=== PATIENT | female | born 1965 | race Caucasian/White ===

== ENCOUNTER → 2019-01-27 | Outpatient (CLI) | payer SELFPAY ==
--- NOTE | 2019-01-27 11:11 | Diagnostic Imaging Report ---
PROCEDURE: CT head without contrast. TECHNIQUE: Multiple contiguous axial images were obtained through the brain without the use of intravenous contrast. Auto Exposure Controls were utilized during the CT exam to meet ALARA standards for radiation dose reduction. INDICATION: Loss of balance. COMPARISON: There are no prior studies available for comparison. FINDINGS: There is no mass, shift of midline or hemorrhage to suggest an acute intracranial abnormality. The ventricles are not abnormally dilated. The bone window shows no evidence for a fracture or for a destructive lesion. The orbits and sinuses were not visualized in their entirety. Where visualized there is no acute abnormality. IMPRESSION: 1. There is no evidence for an acute intracranial abnormality and there is no sign of a mass lesion. 2. If clinical concern regarding an underlying abnormality persists, then MRI would be recommended for further study. Dictated by: Dictated on workstation # [id number]
== END ==
LOC: RAD FS 10:08
PROVIDERS: ATTEND Family Medicine
DX: R26.89 Other abnormalities of gait and mobility (principal)
CPT/HCPCS: 70450

== ENCOUNTER → 2019-09-22 | Outpatient (CLI) | payer SELFPAY ==
--- NOTE | 2019-09-22 15:51 | Diagnostic Imaging Report ---
INDICATION: Right thumb injury. FINDINGS: Three views of the right thumb show no acute fracture or dislocation. There is some joint space narrowing of the interphalangeal joint of the thumb. 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 Dictated by: Dictated on workstation # [id number]
== END ==
LOC: RAD FS 15:06
PROVIDERS: ATTEND Nurse Practitioner
DX: M19.041 Primary osteoarthritis, right hand (principal)
CPT/HCPCS: 73140

== ENCOUNTER → 2019-11-18 | Outpatient (CLI) | payer SELFPAY | LOC: ORTHO 08:32 | PROVIDERS: ATTEND Orthopaedic Surgery | DX: S83.411A Sprain of medial collateral ligament of right knee, initial encounter (principal); M76.51 Patellar tendinitis, right knee; M70.51 Other bursitis of knee, right knee; M17.11 Unilateral primary osteoarthritis, right knee; M76.899 Other specified enthesopathies of unspecified lower limb, excluding foot ==

== ENCOUNTER 2020-04-12 15:54 | Emergency (ER) | payer SELFPAY ==
[~2020-04-12] VITALS: Ht 165 cm; Wt 104.3 kg
[2020-04-12] MEDS ORDERED: ONDANSETRON 4 MG/2 ML (SDV) Z0FRAN ONE (16:06)
[2020-04-12 16:24] LABS: BASOPHILS # (AUTO) 0.1 10^3/uL (0.0-0.1); BASOPHILS % (AUTO) 1 % (0-10); EOSINOPHILS # (AUTO) 2.4 10^3/uL (0.0-0.3); EOSINOPHILS % (AUTO) 21 % (0-10); HEMATOCRIT 42 % (35-52); LYMPHOCYTES # (AUTO) 2.4 X 10^3 (1.0-4.0); LYMPHOCYTES % (AUTO) 21 % (12-44); MEAN CORPUSCULAR HEMOGLOBIN 30 PG (25-34); MEAN CORPUSCULAR HGB CONC 33 G/DL (32-36); MEAN CORPUSCULAR VOLUME 90 FL (80-99); MEAN PLATELET VOLUME 10.1 FL (7.4-10.4); MONOCYTES # (AUTO) 0.7 X 10^3 (0.0-1.0); MONOCYTES % (AUTO) 6 % (0-12); NEUTROPHILS # (AUTO) 5.9 X 10^3 (1.8-7.8); NEUTROPHILS % (AUTO) 51 % (42-75); PLATELET COUNT 305 10^3/uL (130-400); WHITE BLOOD COUNT 11.4 10^3/uL (4.3-11.0)
[2020-04-12] MEDS ORDERED: RT-ALBUTEROL/IPRATROPIUM 3 ML (DUONEB) VIAL INH ONE (16:30)
[2020-04-12] MEDS ORDERED: NS IV 500 ML 500 ML IV SCH (16:30)
--- NOTE | 2020-04-12 16:32 | ED Cough/URI ---
General Chief Complaint: Respiratory Problems Stated Complaint: HEADACHE,SOA History of Present Illness Date Seen by Provider: Apr 12, 2020 Time Seen by Provider: 16:20 Initial Comments 54-year-old female presents with complaint of headache and shortness of air. History of present illness, patient states she quit smoking 2 months ago and occasionally has some wheezing and shortness of air, but today got significantly worse. Denies fever or chills, but is having some nausea and vomiting which began today as well. Denies known exposure to COVID-19. Saw her doctor yesterday for some "tremors" that she is having and she was started on propranolol? Allergies and Home Medications Allergies Coded Allergies: codeine (Verified Allergy, Unknown, 04/12/20) pentazocine (Verified Allergy, Unknown, 04/12/20) Home Medications Albuterol Sulfate 1 Puff Puff, 2 PUFF IH Q4H 1 PUFF = 90 MCG Prescribed by: OZZIE SANTIAGO on 04/12/201705 Aspirin 325 Mg Tablet, 325 MG PO DAILY Prescribed by: OZZIE SANTIAGO on 04/12/201704 Azithromycin 250 Mg Tablet, 250 MG PO BID Prescribed by: OZZIE SANTIAGO on 04/12/201704 Dexamethasone 6 Mg Tablet, 6 MG PO DAILY Prescribed by: OZZIE SANTIAGO on 04/12/201704 Ivermectin 3 Mg Tablet, 18 MG PO ONCE take 6 tablets po today, repeat 6 tablets po in 3 days; then take 6 tablets po once weekly for 4 weeks. Prescribed by: OZZIE SANTIAGO on 04/12/201704 Ondansetron 4 Mg Tab.rapdis, 4 MG PO TID Prescribed by: OZZIE SANTIAGO on 04/12/201704 Patient Home Medication List Home Medication List Reviewed: Yes Review of Systems Review of Systems Constitutional: No chills, No diaphoresis, No dizziness, No fever; malaise; No weakness EENTM: no symptoms reported Respiratory: cough, short of breath, wheezing Cardiovascular: No chest pain, No edema, No palpitations, No syncope Gastrointestinal: No abdominal pain; nausea, vomiting Musculoskeletal: No back pain, No joint pain Skin: No change in color, No rash Psychiatric/Neurological: Headache; Denies Numbness, Denies Paresthesia, Denies Seizure Past Lemsvhz-Ovknaf-Ydwbuq Hx Past Med/Social Hx: Reviewed Nursing Past Med/Soc Hx Patient Social History Smoking Status: Former Smoker Recent Foreign Travel: No Contact w/Someone Who Travel: No Physical Exam Vital Signs - First Documented 04/12/20 16:12 Temp 35.7 Pulse 60 Resp 19 B/P (MAP) 163/81 (108) Pulse Ox 93 O2 Delivery Room Air Capillary Refill : Height: '" Weight: lbs. oz. kg; BMI Method: General Appearance: WD/WN, no apparent distress HEENT: PERRL/EOMI, normal ENT inspection Neck: non-tender, full range of motion, supple Respiratory: chest non-tender, no respiratory distress, no accessory muscle use, wheezing (expiratory) Cardiovascular: regular rate, rhythm, no edema, no gallop, no JVD Gastrointestinal: normal bowel sounds, non tender, soft Extremities: normal range of motion, non-tender, no pedal edema Neurologic/Psychiatric: no motor/sensory deficits, alert, normal mood/affect Skin: normal color, warm/dry Focused Exam Lactate Level 04/12/20 16:15: Lactic Acid Level 1.01 Lactic Acid Level Laboratory Tests Test 04/12/20 16:15 Lactic Acid Level 1.01 MMOL/L (0.50-2.00) Progress/Results/Core Measures Suspected Sepsis SIRS Temperature: Pulse: Respiratory Rate: Laboratory Tests 04/12/20 16:09: White Blood Count 11.4H Blood Pressure / Mean: 04/12/20 16:15: Lactic Acid Level 1.01 Laboratory Tests 04/12/20 16:09: Creatinine 1.00, Platelet Count 305, Total Bilirubin 0.2 Results/Orders Lab Results Laboratory Tests Test 04/12/20 16:09 04/12/20 16:15 Range/Units White Blood Count 11.4 H 4.3-11.0 10^3/uL Red Blood Count 4.71 4.35-5.85 10^6/uL Hemoglobin 14.0 11.5-16.0 G/DL Hematocrit 42 35-52 % Mean Corpuscular Volume 90 80-99 FL Mean Corpuscular Hemoglobin 30 25-34 PG Mean Corpuscular Hemoglobin Concent 33 32-36 G/DL Red Cell Distribution Width 13.7 10.0-14.5 % Platelet Count 305 130-400 10^3/uL Mean Platelet Volume 10.1 7.4-10.4 FL Immature Granulocyte % (Auto) 0 % Neutrophils (%) (Auto) 51 42-75 % Lymphocytes (%) (Auto) 21 12-44 % Monocytes (%) (Auto) 6 0-12 % Eosinophils (%) (Auto) 21 H 0-10 % Basophils (%) (Auto) 1 0-10 % Neutrophils # (Auto) 5.9 1.8-7.8 X 10^3 Lymphocytes # (Auto) 2.4 1.0-4.0 X 10^3 Monocytes # (Auto) 0.7 0.0-1.0 X 10^3 Eosinophils # (Auto) 2.4 H 0.0-0.3 10^3/uL Basophils # (Auto) 0.1 0.0-0.1 10^3/uL Immature Granulocyte # (Auto) 0.0 0.0-0.1 10^3/uL Neutrophils % (Manual) 59 % Lymphocytes % (Manual) 15 % Monocytes % (Manual) 3 % Eosinophils % (Manual) 20 % Basophils % (Manual) 1 % Band Neutrophils 2 % Blood Morphology Comment NORMAL Sodium Level 141 135-145 MMOL/L Potassium Level 5.0 3.6-5.0 MMOL/L Chloride Level 107 98-107 MMOL/L Carbon Dioxide Level 24 21-32 MMOL/L Anion Gap 10 5-14 MMOL/L Blood Urea Nitrogen 18 7-18 MG/DL Creatinine 1.00 0.60-1.30 MG/DL Estimat Glomerular Filtration Rate 58 BUN/Creatinine Ratio 18 Glucose Level 95 70-105 MG/DL Calcium Level 9.0 8.5-10.1 MG/DL Corrected Calcium 9.1 8.5-10.1 MG/DL Total Bilirubin 0.2 0.1-1.0 MG/DL Aspartate Amino Transf (AST/SGOT) 16 5-34 U/L Alanine Aminotransferase (ALT/SGPT) 15 0-55 U/L Alkaline Phosphatase 85 40-136 U/L C-Reactive Protein 1.05 H <0.50 MG/DL Total Protein 7.0 6.4-8.2 GM/DL Albumin 3.9 3.2-4.5 GM/DL Lactic Acid Level 1.01 0.50-2.00 MMOL/L My Orders Orders - ROVENSTINE,OZZIE L DO Ondansetron Injection (Zofran Injectio (04/12/20 16:06) Ed Iv/Invasive Line Start (04/12/20 16:10) Chest 1 View Ap/Pa Only (04/12/20 16:10) Cbc With Automated Diff (04/12/20 16:10) Comprehensive Metabolic Panel (04/12/20 16:10) Crp Fs (04/12/20 16:10) Procalcitonin (Pct) (04/12/20 16:10) Lactic Acid Analyzer (04/12/20 16:10) Coronavirus Sars-Cov-2 So 2019 (04/12/20 16:10) Manual Differential (04/12/20 16:09) Dexamethasone Injection (Decadron Inje (04/12/20 16:30) Albuterol/Ipra Inhalation Soln (Duoneb I (04/12/20 16:30) Ns Iv 500 Ml (Sodium Chloride 0.9%) (04/12/20 16:30) Svn Small Volume Nebulizer (04/12/20 16:28) Medications Given in ED Current Medications Medications Dose Ordered Sig/Leland Route Start Time Stop Time Status Last Admin Dose Admin Albuterol/ Ipratropium 3 ml ONCE ONCE INH 04/12/20 16:30 12 16:31 DC 04/12/20 16:40 3 ML Dexamethasone Sodium Phosphate 8 mg ONCE ONCE IV 04/12/20 16:30 04/12/20 16:31 DC 04/12/20 16:40 8 MG Ondansetron HCl 4 mg STK-MED ONCE .ROUTE 04/12/20 16:06 04/12/20 16:10 DC 04/12/20 16:41 4 MG Vital Signs/I&O 04/12/20 16:12 Temp 35.7 Pulse 60 Resp 19 B/P (MAP) 163/81 (108) Pulse Ox 93 O2 Delivery Room Air Capillary Refill : Progress Note : Progress Note Patient with clinical signs suspicious for COVID infection, although her chest x-ray is clear and lab work is otherwise normal. Patient did have oxygen saturations hovering 90-93 percent, she did feel better after breathing treatment and steroids and was no longer dyspneic or nauseated. Patient tested for COVID-19 with results pending and advised self quarantine. Initiated outpatient treatment including ivermectin, azithromycin, dexamethasone, aspirin and albuterol. Advised following vitamins: Zinc, vitamin D, vitamin C. Explained patient to follow-up promptly to the ER for any progressive shortness of air or chest pain. ECG Initial ECG Impression Date: Apr 12, 2020 Initial ECG Impression Time: 16:10 Initial ECG Rate: 60 Initial ECG Rhythm: Normal Sinus Initial ECG Intervals: Normal Initial ECG Impression: Normal Diagnostic Imaging Diagonstic Imaging: Xray Comments Date of Exam:04/12/20 CHEST 1 VIEW AP/PA ONLY EXAMINATION: Portable erect AP chest at 04:14 p.m. INDICATION: Shortness of breath. COMPARISON: There are no prior studies available for comparison. FINDINGS: The heart size is within normal limits. The lungs are clear. There is no evidence for failure, pneumonia, or for a pleural effusion. The mediastinum is not widened. The osseous structures are intact. IMPRESSION: There is no evidence for active disease. Dictated on workstation # [id number] Dict: 04/12/20 1632 Trans: 04/12/20 1639 [id number] [id number] Interpreted by: MONTSERRAT TOMPKINS MD Electronically signed by: Departure Impression Primary Impression: Bronchitis Additional Impression: Person under investigation for COVID-19 Disposition: 01 HOME, SELF-CARE Condition: Improved Departure-Patient Inst. Decision time for Depature: 16:51 Referrals: KIMBERLY MATTSON MD (PCP/Family) Primary Care Physician Patient Instructions: Acute Bronchitis, Adult (DC), Coronavirus Disease 2019 (COVID-19) ED Add. Discharge Instructions: Because we tested you for Covid-19 we ask that you self quarantine until you get your results and if negative you are free to go where you like. See Dr Mattson in 1 week, ER sooner if your symptoms get significantly worse. You are advised to take the following vitamins daily for 4 weeks: 1. Vitamin D 5000iu daily 2. Zinc 200mg daily 3. Vitamin C 3000mg daily All discharge instructions reviewed with patient and/or family. Voiced understanding. Scripts Albuterol Sulfate (PROAIR HFA) 1 Puff Puff 2 PUFF IH Q4H for Shortness of Breath, #1 PUFF 1 Refill 1 PUFF = 90 MCG Prov: OZZIE SANTIAGO DO 04/12/20 Aspirin (Aspirin) 325 Mg Tablet 325 MG PO DAILY, #30 TAB Prov: OZZIE SANTIAGO DO 04/12/20 Ondansetron (Ondansetron Odt) 4 Mg Tab.rapdis 4 MG PO TID for Nausea, #12 TAB Prov: OZZIE SANTIAGO DO 04/12/20 Dexamethasone (Dexamethasone) 6 Mg Tablet 6 MG PO DAILY for 7 Days, #7 TAB Prov: OZZIE SANTIAGO DO 04/12/20 Azithromycin (Azithromycin) 250 Mg Tablet 250 MG PO BID, #10 TAB 0 Refills Prov: OZZIE SANTIAGO DO 04/12/20 Ivermectin (Ivermectin) 3 Mg Tablet 18 MG PO ONCE, #36 TAB take 6 tablets po today, repeat 6 tablets po in 3 days; then take 6 tablets po once weekly for 4 weeks. Prov: OZZIE SANTIAGO DO 04/12/20 OZZIE SANTIAGO DO Apr 12, 2020 16:32
[2020-04-12 16:40] LABS: ALBUMIN 3.9 GM/DL (3.2-4.5); BILIRUBIN,TOTAL 0.2 MG/DL (0.1-1.0)
--- NOTE | 2020-04-12 16:40 | Diagnostic Imaging Report ---
EXAMINATION: Portable erect AP chest at 04:14 p.m. INDICATION: Shortness of breath. COMPARISON: There are no prior studies available for comparison. FINDINGS: The heart size is within normal limits. The lungs are clear. There is no evidence for failure, pneumonia, or for a pleural effusion. The mediastinum is not widened. The osseous structures are intact. IMPRESSION: There is no evidence for active disease. Dictated by: Dictated on workstation # [id number]
[2020-04-12] MEDS ORDERED: IVER3TAB2 PO (17:05)
[2020-04-12] MEDS ORDERED: DEXA6TAB PO (17:05)
[2020-04-12] MEDS ORDERED: ONDA4TAB11 PO (17:05)
[2020-04-12] MEDS ORDERED: ASPI-808 PO (17:05)
[2020-04-12] MEDS ORDERED: AZIT250T12 PO (17:05)
[2020-04-12] MEDS ORDERED: RT-ALBUINH IH (17:06)
[2020-04-12 17:18] LABS: BAND NEUTROPHILS 2 %; BASOPHILS % (MANUAL) 1 %; EOSINOPHILS % (MANUAL) 20 %; LYMPHOCYTES % (MANUAL) 15 %; MONOCYTES % (MANUAL) 3 %; NEUTROPHILS % (MANUAL) 59 %; RBC MORPH NORMAL
[2020-04-12 17:40] VITALS: BP 163/69
== END 2020-04-12 17:40 | disposition home or self-care (01) ==
LOC: EDUNIT# 15:54 → ER FS 15:57
DX: J40 Bronchitis, not specified as acute or chronic (principal); Z87.891 Personal history of nicotine dependence; Z88.5 Allergy status to narcotic agent; Z88.8 Allergy status to other drugs, medicaments and biological substances; Z20.828 Contact with and (suspected) exposure to other viral communicable diseases; Z79.82 Long term (current) use of aspirin
CPT/HCPCS: 36415; 71045; 80053; 83605; 84145; 85007; 85027; 86141; 93005; 96374; 96375; 99284; U0002; 87635

== ENCOUNTER 2021-04-20 08:45 | Emergency (ER) | payer OTHER ==
[~2021-04-20] VITALS: Ht 165 cm; Wt 110.0 kg
[~2021-04-20 08:45] MED LIST: ASPI-808 PO; AZIT250T12 PO; DEXA6TAB PO; IVER3TAB2 PO; ONDA4TAB11 PO; RT-ALBUINH IH
--- OUTSIDE RECORDS SUMMARY | 2021-04-20 08:52 | XMS REPORT | Clinical Summary ---
Author Author [facility] Organization [facility] Address Unknown Phone Unavailable Care Team Providers Care Web Press Operator Assistant Name Role Phone Self, Lan LOZA PCP Source Comments Some departments are not documenting in the electronic medical record. If you d o not see the information that you expected, contact Release of Information in [facility] [employer] department at [phone] for further assistan ce in locating additional records.[facility] Allergies Comments Active Allergy Reactions Severity Noted Date Codeine SHORTNESS OF Medium 02/19/2019 BREATH, SWEATING Decrease kidney function Nsaids (Non-Steroidal SEE COMMENTS Low 02/20/20 19 Anti-Inflammatory Drug) Medications End Date Status Medication Sig Dispensed Refills Start Date Active senna/docusate Take 3 0 (SENOKOT-S) 8.6/50 mg tablets by tablet mouth at bedtime daily. Active gabapentin (NEURONTIN) Take 600 mg 0 600 mg tablet by mouth three times daily. Active acetaminophen (TYLENOL) Take 500 mg 0 500 mg tablet by mouth every 6 hours as needed for Pain. Max of 4,000 mg of acetaminophen in 24 hours. Active albuterol (PROAIR HFA, Inhale 2 0 VENTOLIN HFA, PROVENTIL puffs by HFA) 90 mcg/actuation mouth into inhaler the lungs every 4 hours as needed for Wheezing or Shortness of Breath. Shake well before use. Active diclofenac (VOLTAREN) 1 % Apply 4 g 0 topical gel topically to affected area twice daily as needed. Active zolpidem (AMBIEN) 10 mg Take 10 mg by 0 tablet mouth at bedtime as needed for Sleep. Active traMADoL (ULTRAM) 50 mg Take 50 mg by 0 tablet mouth every 4 hours as needed for Pain. Active duloxetine DR (CYMBALTA) twice daily. 0 06/03 60 mg capsule 90 mg every 1 morning, 60 mg every night Active lisinopriL (ZESTRIL) 5 mg Take 5 mg by 0 tablet mouth daily. Active QUEtiapine (SEROQUEL) 100 every 24 0 mg tablet hours. Active propranoloL (INDERAL) 20 three times 0 04/11 mg tablet daily. 0 Active varenicline (CHANTIX Take 1 mg by 0 CONTINUING MONTH BOX) 1 mouth twice mg tablet daily. Take with 8 oz of water and after a meal. Active omeprazole DR (PRILOSEC) Take 20 mg by 0 20 mg capsule mouth twice daily. Active cyanocobalamin (VITAMIN Take 100 mcg 0 B-12) 100 mcg tablet by mouth daily. Active bisacodyL (DULCOLAX) 5 mg Take 5 mg by 0 tablet mouth every 24 hours as needed for Constipation. Active rivaroxaban (XARELTO Take 15 mg by 51 tablet 0 STARTER PACK) 15 mg (42)- mouth TWICE 1 20 mg (9) 51 tablet pack daily with food for 21 days followed by 20 mg by mouth ONCE daily with food as directed on package. Additional Information Patient taking differently: 20 mg, (No instructions reported), Reported on 08/04/2020 Active lidocaine (LIDODERM) 5 % Apply 1 patch 0 topical patch topically to affected area every 24 hours. Apply patch for 12 hours, then remove for 12 hours before repeating. Active fluticasone propionate Apply to 0 (FLONASE) 50 each nostril mcg/actuation nasal as directed spray, suspension daily. Shake bottle gently before using. Active ondansetron (ZOFRAN ODT) Dissolve by 0 4 mg rapid dissolve mouth every 8 tablet hours as needed for Nausea or Vomiting. Place on tongue to disolve. Active aspirin EC 81 mg tablet Take one 90 tablet 1 tablet by 1 mouth daily. Start taking after complete 3 months of xarelto Active rivaroxaban (XARELTO) 20 Take one 30 tablet 0 0 mg tablet tablet by 1 mouth daily. Take with food. Active atorvastatin (LIPITOR) 40 TAKE ONE (1) 90 tablet 1 mg tablet TABLET BY 1 MOUTH ONCE DAILY Active baclofen (LIORESAL) 10 mg Take 1.5 135 tablet 5 tablet tablets by 1 mouth three times daily. Active Problems Problem Noted Date Benign essential tremor 07/03/2020 Mixed hyperlipidemia 07/03/2020 Depression with anxiety 07/03/2020 History of tobacco use in past year 07/03/2020 Gastroesophageal reflux disease without esophagitis 07/03/2020 Received intravenous tissue plasminogen activator (tP A) in emergency 07/03/2020 department Renal artery stenosis 07/03/2020 Overview: Formatting of this note might be differ ent from the original. Left Ataxia 07/03/2020 Class 2 obesity due to excess calories in adult 10/2020 Hemiparesis of left nondominant side due to acute cer ebrovascular disease 07/02/2020 Acute pulmonary embolism 07/02/2020 Right thalamic infarction 07/02/2020 Chronic back pain 07/02/2020 Angioedema 07/02/2020 Overview: Formatting of this note might be differ ent from the original. 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 Cognitive impairment 02/19/2019 Idiopathic progressive neuropathy Essential hypertension Arthritis Encounters Care Team Description Date Type Specialty [facility] MD 02/08/2021 Refill Neurology from Last 3 Months Surgical History Surgery Date Site/Laterality Comments LUNG SURGERY Right lobe of lung remove d as toddler CHOLECYSTECTOMY 04/29/1984 - 04/28/1985 BREAST SURGERY 04/29/2007 - Right 2 lumbs removed 04/28/2008 ENDOMETRIAL ABLATION 04/29/2008 - 04/28/2009 APPENDECTOMY Medical History Medical History Date Comments Neuropathy Hyperlipemia Kidney disease Essential hypertension Arthritis Knee pain, bilateral Migraines Memory loss Stroke (HCC) Disorganized thinking Abnormal involuntary movement Family History * Patient is adopted Medical History Relation Name Comments Diabetes Brother Hypertension Brother Bipolar Disorder Brother Arthritis Father Diabetes Father Hypertension Father Neuropathy Father Heart Disease Mother Cancer-Hematologic Sister Relation Name Status Comments Brother Brother Father Mother Sister Social History Date Tobacco Use Types Packs/Day Years Used Quit: 02/2020 Former Smoker Cigarettes Smokeless Tobacco: Never Used Comments: smoked from 1979- 2019 Comments Alcohol Use Standard Drinks/Week Not Currently 0 (1 standard drink = 0.6 o z pure alcohol) Sex Assigned at Date Recorded Not on file Last Filed Vital Signs Reading Time Taken Comments Vital Sign 135/78 08/04/2020 9:21 AM CDT Blood Pressure 58 08/04/2020 9:21 AM CDT Pulse 36.8 C (98.2 F) 07/06/2020 1:15 PM 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 Temperature 16 03/05/2019 12:23 PM 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 Respiratory Rate 94% 07/06/2020 1:15 PM 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 Oxygen Saturation - - Inhaled Oxygen Concentration 104.3 kg (230 lb) 08/04/2020 9:21 AM CDT Weight 166.4 cm (5' 5.5") 08/04/2020 9:21 AM CDT Height 37.69 08/04/2020 9:21 AM CDT Body Mass Index Plan of Treatment Health Maintenance Due Date Last Done Comments HIV SCREENING 1979 DTAP/TDAP VACCINES (1 - 1982 Tdap) HEPATITIS C SCREENING 1982 PHYSICAL (COMPREHENSIVE) 1982 EXAM CERVICAL CANCER SCREENING 1985 BREAST CANCER SCREENING 2004 COLORECTAL CANCER 2014 SCREENING SHINGLES RECOMBINANT 2014 VACCINE (1 of 2) INFLUENZA VACCINE 11/27/2020 Goals Goal Patient Associated Recent Progress Patient-Stat Aut hor Goal Type Problems ed? Improve [facility] No Alyssa Curiel, SOCO Results Not on filefrom Last 3 Months Advance Directives Patient Automatic Grinder Operator Explanation Type Date Recorded Advance 07/05/2020 12:00 AM Directive/DPOA Date Inactivated Comments Code Status Date Activated 07/06/2020 3:47 PM patient is okay with intubat ion if airway become compromised from angioedema only. DNAR-Full 07/04/2020 4:48 PM Intervention Provider has discussed Code Status No, more discussi on w/Patient or Family? needed Does the patient want any intervention Yes for a pre-arrest emergency which would necessitate transfer to an ICU setting? Respiratory emergency: does the patient Yes want to have intubation with mechanical ventilation? Symptomatic/hypotensive dysrhythmia with No a pulse: does the patient want cardioversion? Hypotension: does the patient want the Yes use of vasopressors if needed for blood pressure? Respiratory emergency: does the patient Yes want to have a trial of non-invasive positive pressure ventilation (NIPPV/BiPAP)? 07/04/2020 4:48 PM Full Code 07/04/2020 8:20 AM Provider has discussed Code Status No, more discussi on w/Patient or Family? needed 07/04/2020 8:20 AM Patient currently experienci ng angioedema from TPA -- patient is okay with intubation if airway become compromised from angioedema only. DNAR-Full 07/02/2020 3:37 PM Intervention Provider has discussed Code Status Yes w/Patient or Family? Does the patient want any intervention Yes for a pre-arrest emergency which would necessitate transfer to an ICU setting? Respiratory emergency: does the patient Yes want to have intubation with mechanical ventilation? Symptomatic/hypotensive dysrhythmia with No a pulse: does the patient want cardioversion? Hypotension: does the patient want the Yes use of vasopressors if needed for blood pressure? Respiratory emergency: does the patient Yes want to have a trial of non-invasive positive pressure ventilation (NIPPV/BiPAP)? Care Teams Start Date End Date Web Press Operator Assistant Relationship Specialty 02/19/19 Lan Mattson MD PCP - General [address] [id number]
--- NOTE | 2021-04-20 09:14 | ED Lower Extremity ---
General Stated Complaint: BLOOD CLOT CONCERN Source: patient Exam Limitations: no limitations History of Present Illness Date Seen by Provider: Apr 20, 2021 Time Seen by Provider: 08:50 Initial Comments 55-year-old female with past medical history of a pulmonary embolism last year while she was on Premarin, finished a course of Xarelto and is currently off anticoagulation coming in due to left calf pain for the past 4 to 5 days. Pain is intermittent, on the medial side of her left calf. She has never had pain like this before. Never did have a DVT diagnosed prior. Worse when she touches it, better with rest. Tried tramadol this morning which took the edge off. Is otherwise denying any chest pain, shortness of breath, abdominal pain, nausea, vomiting, diarrhea, fever, chills, weakness, numbness, or any other concerns. Of note, she is no longer on the Premarin. Allergies and Home Medications Allergies Coded Allergies: codeine (Verified Allergy, Unknown, 04/12/20) pentazocine (Verified Allergy, Unknown, 04/12/20) Patient Home Medication List Home Medication List Reviewed: Yes Albuterol Sulfate (Proair Hfa) 1 Puff Puff, 2 PUFF IH Q4H Prescribed by: OZZIE SANTIAGO on 04/12/201705 Aspirin (Aspirin) 325 Mg Tablet, 325 MG PO DAILY Prescribed by: OZZIE SANTIAGO on 04/12/201704 Azithromycin (Azithromycin) 250 Mg Tablet, 250 MG PO BID Prescribed by: OZZIE SANTIAGO on 04/12/201704 Dexamethasone (Dexamethasone) 6 Mg Tablet, 6 MG PO DAILY Prescribed by: OZZIE SANTIAGO on 04/12/201704 Ivermectin (Ivermectin) 3 Mg Tablet, 18 MG PO ONCE Prescribed by: OZZIE SANTIAGO on 04/12/201704 Ondansetron (Ondansetron Odt) 4 Mg Tab.rapdis, 4 MG PO TID Prescribed by: OZZIE SANTIAGO on 04/12/201704 Review of Systems Constitutional: No chills, No fever EENTM: No blurred vision Respiratory: No cough, No short of breath Cardiovascular: No chest pain Gastrointestinal: No abdominal pain Genitourinary: no symptoms reported Musculoskeletal: muscle pain Skin: no symptoms reported Psychiatric/Neurological: No Symptoms Reported All Other Systems Reviewed Negative Unless Noted: Yes Past Cqlwyxi-Yhdstx-Zhgxyw Hx Patient Social History Tobacco Use?: Yes Seasonal Allergies Seasonal Allergies: No Past Medical History Surgeries: Yes (uterine ablation) Appendectomy, Gallbladder, Lobectomy Respiratory: No Cardiac: No Neurological: No Genitourinary: No Gastrointestinal: No Musculoskeletal: Yes Arthritis Endocrine: No HEENT: No Cancer: No Psychosocial: No Integumentary: No Physical Exam Vital Signs Vital Signs - First Documented 04/20/21 09:18 Temp 36.4 Pulse 16 Resp 16 B/P (MAP) 155/98 (117) O2 Delivery Room Air Capillary Refill : Height, Weight, BMI Height: '" Weight: lbs. oz. kg; 38.00 BMI Method: General Appearance: WD/WN, no apparent distress HEENT: PERRL/EOMI, TMs normal, pharynx normal Neck: non-tender, full range of motion, supple, normal inspection Cardiovascular: regular rate, rhythm, no edema, no murmur Respiratory: chest non-tender, lungs clear, normal breath sounds, no respiratory distress, no accessory muscle use Gastrointestinal: normal bowel sounds, non tender, soft; No distended, No guarding, No rebound Hips: bilateral hip non-tender, bilateral hip normal inspection, bilateral hip normal range of motion, bilateral hip no evidence of injury Legs: bilateral leg non-tender, bilateral leg normal inspection, bilateral leg normal range of motion, bilateral leg no evidence of injury Knees: bilateral knee non-tender, bilateral knee normal inspection, bilateral knee normal range of motion, bilateral knee no evidence of injury, bilateral knee other (Soft tissue tenderness along the left calf without any redness or swelling compared to the other side) Ankles: bilateral ankle non-tender, bilateral ankle normal inspection, bilateral ankle normal range of motion, bilateral ankle no evidence of injury Feet: bilateral foot non-tender, bilateral foot normal inspection, bilateral foot normal range of motion, bilateral foot no evidence of injury Neurologic/Tendon: normal sensation, normal motor functions Neurologic/Psychiatric: no motor/sensory deficits, alert, normal mood/affect Skin: normal color, warm/dry Lymphatic: no adenopathy Progress/Results/Core Measures Results/Orders My Orders Orders - SOUTH NUNEZ MD Venous Lower Ext Lt (04/20/21 09:08) Acetaminophen Tablet (Tylenol Tablet) (04/20/21 09:15) Medications Given in ED Current Medications Medications Dose Ordered Sig/Leland Route Start Time Stop Time Status Last Admin Dose Admin Acetaminophen 1,000 mg ONCE ONCE PO 04/20/21 09:15 04/20/21 09:16 DC 04/20/21 09:12 1,000 MG Vital Signs/I&O 04/20/21 09:18 Temp 36.4 Pulse 16 Resp 16 B/P (MAP) 155/98 (117) O2 Delivery Room Air Progress Progress Note : Progress Note 55-year-old female with above history coming in due to left calf pain. ABCs w ere intact and vitals were stable on presentation. She is tender along her left calf, but has no swelling or redness that would be indicative of a DVT. Additionally, when she had a blood clot previously it was instigated by her taking estrogen, which she currently does not take. We will get an ultrasound however to assist in ruling out a DVT further. She was given Tylenol for pain control. The ultrasound was negative for DVT. I believe the patient is stable for discharge. She was sent home with strict return precautions. Departure Impression Primary Impression: Pain of left calf Disposition: HOME, SELF-CARE Condition: Stable Departure-Patient Inst. Decision time for Depature: 09:55 Referrals: KIMBERLY DIAZ MD (PCP/Family) Primary Care Physician Patient Instructions: Lower Extremity Muscle Strain (DC) Add. Discharge Instructions: Please continue to take the tramadol for the pain, you can add in Tylenol if that is not working. You can also try ice packs, heat, or massage. Do whatever feels best. Please follow back up with your regular doctor, especially if you continue to have pain in the next couple of weeks. If your leg becomes red, swollen, you develop any chest pain or shortness of breath it feels the same as you had a PE, then I would want you to go back to the ER sooner. Work/School Note: Work Release Form Date Seen in the Emergency Department: Apr 20, 2021 Return to Work: Apr 21, 2021 Restrictions: No Restrictions SOUTH NUNEZ MD Apr 20, 2021 09:13
[2021-04-20] MEDS ORDERED: ACETAMINOPHEN 500 MG TAB (TYLENOL) PO ONE (09:15)
[2021-04-20 09:18] VITALS: BP 155/98
--- NOTE | 2021-04-20 10:05 | Diagnostic Imaging Report ---
PROCEDURE: US left lower extremity venous. TECHNIQUE: Multiple real-time grayscale images were obtained over the left lower extremity in various projections. Additional duplex Doppler and color Doppler images were also obtained. INDICATION: Left lower extremity swelling and pain. COMPARISON: None. FINDINGS: Visualized deep and superficial venous system is patent. There is no DVT. IMPRESSION: Negative left lower extremity venous Doppler. Dictated by: Dictated on workstation # [id number]
== END 2021-04-20 09:56 | disposition home or self-care (01) ==
LOC: EDUNIT# 08:45 → ER FS 08:47
DX: M79.662 Pain in left lower leg (principal); Z72.0 Tobacco use; Z79.82 Long term (current) use of aspirin

== ENCOUNTER 2021-09-29 10:28 | Day surgery (SDC) | payer OTHER ==
[2021-09-29] VITALS (9 sets, daily range): BP systolic 123–165; BP diastolic 74–86
[~2021-09-29] VITALS: Ht 165.1 cm; Wt 110.0 kg
--- NOTE | 2021-09-29 10:37 | ED Upper Extremity ---
General Stated Complaint: LT ARM INJ History of Present Illness Date Seen by Provider: Sep 29, 2021 Time Seen by Provider: 10:37 Initial Comments 56-year-old female with PMH of psych disorder/stroke last year/asthma/obesity, is here with complaints of left elbow deformity and pain, pain in the forearm, after a fall today over tiles in her house. Denies dizziness, LOC, head strike. Allergies and Home Medications Allergies Coded Allergies: codeine (Verified Allergy, Unknown, 04/12/20) pentazocine (Verified Allergy, Unknown, 04/12/20) Patient Home Medication List Home Medication List Reviewed: Yes Albuterol Sulfate (Proair Hfa) 1 Puff Puff, 2 PUFF IH Q4H Prescribed by: OZZIE SANTIAGO on 04/12/20 170 Aspirin (Aspirin) 325 Mg Tablet, 325 MG PO DAILY Prescribed by: OZZIE SANTIAGO on 04/12/20 170 Azithromycin (Azithromycin) 250 Mg Tablet, 250 MG PO BID Prescribed by: OZZIE SANTIAGO on 04/12/201704 Dexamethasone (Dexamethasone) 6 Mg Tablet, 6 MG PO DAILY Prescribed by: OZZIE SANTIAGO on 04/12/20 170 Ivermectin (Ivermectin) 3 Mg Tablet, 18 MG PO ONCE Prescribed by: OZZIE SANTIAGO on 04/12/20 170 Ondansetron (Ondansetron Odt) 4 Mg Tab.rapdis, 4 MG PO TID Prescribed by: OZZIE SANTIAGO on 04/12/201704 Review of Systems Constitutional: no symptoms reported EENTM: no symptoms reported Respiratory: no symptoms reported Cardiovascular: no symptoms reported Gastrointestinal: no symptoms reported Genitourinary: no symptoms reported Musculoskeletal: joint pain, joint swelling Skin: no symptoms reported Psychiatric/Neurological: No Symptoms Reported Past Ervpast-Mxkazx-Iepzad Hx Seasonal Allergies Seasonal Allergies: No Past Medical History Surgeries: Yes (uterine ablation) Appendectomy, Gallbladder, Lobectomy Respiratory: No Cardiac: No Neurological: No Genitourinary: No Gastrointestinal: No Musculoskeletal: Yes Arthritis Endocrine: No HEENT: No Cancer: No Psychosocial: No Integumentary: No Physical Exam Vital Signs Vital Signs - First Documented 09/29/21 10:34 Temp 36.1 Pulse 70 Resp 20 B/P (MAP) 148/85 (106) Pulse Ox 98 O2 Delivery Room Air Capillary Refill : Height, Weight, BMI Height: '" Weight: lbs. oz. kg; 40.00 BMI Method: General Appearance: moderate distress HEENT: PERRL/EOMI Neck: non-tender, full range of motion, supple, normal inspection Respiratory: chest non-tender, lungs clear Gastrointestinal: non tender, soft Back: normal inspection, no vertebral tenderness Shoulder: normal inspection, non-tender, limited ROM (due to pain in left elbow) Elbow/Forearm: Left (NV bundle intt and pt can move her fingers. Bruising present over forearm and elbow), deformity, limited ROM, pain, soft tissue tenderness, swelling Wrist: Yes normal inspection, Yes non-tender, Yes no evidence of injury Hand: normal inspection, non-tender, no evidence of injury Neurologic/Tendon: normal sensation Neurologic/Psychiatric: no motor/sensory deficits, alert, normal mood/affect, oriented x 3 Skin: warm/dry, ecchymosis Progress/Results/Core Measures Results/Orders My Orders Orders - LUPE VAUGHN MD Hand 2 View Left (09/29/21 10:42) Humerus 2 View Left (09/29/21 10:42) Shoulder 3 View Left (09/29/21 10:42) Fentanyl Inj (Sublimaze Injection) (09/29/21 10:43) Elbow 2 View Left (09/29/21 10:42) Conscious Sedation (09/29/21 11:32) Midazolam Injection (Versed Injection) (09/29/21 11:45) Fentanyl Inj (Sublimaze Injection) (09/29/21 11:45) Ns Iv 1000 Ml (Sodium Chloride 0.9%) (09/29/21 11:32) Monitor-Rhythm Ecg Trace Only (09/29/21 11:32) Ed Iv/Invasive Line Start (09/29/21 11:32) Vital Signs-Conscious Sedation (09/29/21 11:32) Ns Iv 1000 Ml (Sodium Chloride 0.9%) (09/29/21 11:45) Elbow 2 View Left (09/29/21 12:04) Fentanyl Inj (Sublimaze Injection) (09/29/21 12:19) Midazolam Injection (Versed Injection) (09/29/21 12:19) Etomidate Injection (Amidate Injection) (09/29/21 12:24) Medications Given in ED Current Medications Medications Dose Ordered Sig/Leland Route Start Time Stop Time Status Last Admin Dose Admin Fentanyl Citrate 50 mcg ONCE ONCE INJ 09/29/21 11:45 09/29/21 11:46 DC 09/29/21 12:07 50 MCG Midazolam HCl 2 mg ONCE ONCE INJ 09/29/21 11:45 09/29/21 11:46 DC 09/29/21 12:10 2 MG Vital Signs/I&O 09/29/21 10:34 Temp 36.1 Pulse 70 Resp 20 B/P (MAP) 148/85 (106) Pulse Ox 98 O2 Delivery Room Air Progress Progress Note : Progress Note 1. LEFT ELBOW POSTERIOR DISLOCATION - XR LEFT ELBOW: posterior dislocation with avulsed -Elbow reduction attempted and conscious sedation was not working on the patient. Apparently etomidate and propofol are not supposed to be used at the [facility], so patient was initially given fentanyl and Versed without success in sedation. So etomidate was added, also without success for sedation. Reduction was attempted but patient was feeling the pain. Patient received a total of 150 mcg of fentanyl, 4 mg of Versed, and 10 mg of etomidate. Patient also received another 50 mcg of fentanyl prior to transfer. Ketamine not used since pt has a psych disorder. Discussed with Dr. Mccann orthopedics, and [facility] physician, and will transfer patient from [facility] to [facility] for Ortho reduction with anesthesiology and a surgery. Patient agrees with plan. Patient has been accepted by [facility] physician and Ortho. Diagnostic Imaging Diagonstic Imaging: Xray Plain Films/CT/US/NM/MRI: forearm, hand, elbow Comments see report Departure Communication (Admissions) Time/Spoke to Consulting Phy: 13:05 Will transfer to ER for ortho consult and anesthesiology to sedate for procedure in day surgery Family Conversation discussed with pt's sister with pt permission Impression Primary Impression: Dislocation of left elbow Qualified Codes: S53.105A - Unspecified dislocation of left ulnohumeral joint, initial encounter Disposition: XFER SHT-TRM HOSP Condition: Stable Transfer Transfer Reason: Exceeds level of care Time Spoke to Accepting Phy: 13:12 Transfer Progress Notes will transfer for ortho and anesthesiology consult Transfer Facility: [place] [facility] Method of Transfer: EMS Departure-Patient Inst. Referrals: SELF,KIMBERLY LOZA (PCP) Primary Care Physician LUPE VAUGHN MD Sep 29, 2021 10:37
[2021-09-29] MEDS ORDERED: fentaNYL INJ 100 MCG/2 ML AMP IVP STA (10:43)
[2021-09-29] MEDS ORDERED: NS 1000 ML IV BAG IV STA (11:32)
--- NOTE | 2021-09-29 11:41 | Diagnostic Imaging Report ---
CLINICAL INDICATION: Patient with pain in elbow and left upper extremity. EXAMS: 1: X-ray of the left shoulder, 5 views. 2: X-ray of the left humerus, 1 view. Patient was unable to rotate elbow for additional view and additional view of the wrist. 3: X-ray of the left elbow, 2 views. 4: X-ray of the left hand, 1 views. COMPARISON: None. FINDINGS: X-rays of the left elbow left humerus shows dislocation of the elbow joint with lateral displacement of the radius and ulna in relation to the distal humerus but roughly 3 cm. There is also posterior displacement of the radius and ulna by roughly 11 mm. Measurements are obtained from the elbow x-ray. There is a small focal calcification seen medially adjacent to the distal humerus which may represent a small avulsion fracture. There is soft tissue swelling adjacent to the left elbow. There is no other fracture seen involving the left humerus or left elbow x-rays. X-ray of the left shoulder shows no acute fracture dislocation. There are small spurs involving the left acromioclavicular region and inferior aspect of the left glenoid. X-ray of the left hand shows no acute fracture or dislocation is visualized. Carpal bones are grossly unremarkable as visualized. IMPRESSION: 1: X-rays of the left humerus left elbow shows dislocation of the left elbow joint, as described above. Possible small avulsion fracture seen medially adjacent to the distal humerus. There is no other definite fracture seen involving left humerus or left elbow. 2: Limited views of the left hand and wrist due to patient unable to rotate at the elbow. X-rays of the left hand and left shoulder shows no acute fracture or dislocation, as visualized. 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 Dictated by: Dictated on workstation # [id number]
[2021-09-29] MEDS ORDERED: MIDAZOLAM 2 MG/2 ML (VERSED) VIAL INJ ONE (11:45)
[2021-09-29] MEDS ORDERED: fentaNYL INJ 100 MCG/2 ML AMP INJ ONE (11:45)
[2021-09-29] MEDS ORDERED: NS IV 1000 ML 1,000 ML IV SCH (11:45)
[2021-09-29] MEDS ORDERED: MIDAZOLAM 2 MG/2 ML (VERSED) VIAL IM ONE (12:19)
[2021-09-29] MEDS ORDERED: fentaNYL INJ 100 MCG/2 ML AMP ONE ×2 (12:19→15:10)
[2021-09-29] MEDS ORDERED: MIDAZOLAM 2 MG/2 ML (VERSED) VIAL ONE ×2 (12:19→15:10)
[2021-09-29] MEDS ORDERED: fentaNYL INJ 100 MCG/2 ML AMP IVP ONE ×2 (12:20→13:45)
[2021-09-29] MEDS ORDERED: ETOMIDATE IV SOLN 20 MG/10 ML VIAL ONE (12:24)
[2021-09-29] MEDS ORDERED: ETOMIDATE IV SOLN 20 MG/10 ML VIAL IV ONE ×2 (12:25→12:30)
--- NOTE | 2021-09-29 12:57 | Diagnostic Imaging Report ---
CLINICAL HISTORY: Attempted postreduction of left elbow dislocation. COMPARISON: Radiographs performed earlier the same date. TECHNIQUE: Two views of the left elbow. FINDINGS: Persistent dislocation of the left elbow is visualized. Possible small avulsion fracture adjacent to the medial condyle of the distal left humerus is again noted. No new fractures are identified. IMPRESSION: 1. Persistent dislocated left elbow. 2. Redemonstration of possible avulsion fracture adjacent to the medial condyle of the distal left humerus. Dictated by: Dictated on workstation # [id number]
[2021-09-29] MEDS ORDERED: MIDAZOLAM 10 MG/2 ML (VERSED) VIAL IVP ONE (13:30)
[2021-09-29] MEDS ORDERED: SUCCINYLCHOLINE INJ 20 MG/1 ML 10 ML VIAL ONE (15:10)
[2021-09-29] MEDS ORDERED: proPOfol 200 MG/20 ML (DIPRIVAN) VIAL IV ONE (15:10)
[2021-09-29] MEDS ORDERED: LIDOCAINE PF 2% 5 ML (XYLOCAINE) VIAL ONE (15:29)
[2021-09-29] MEDS ORDERED: ONDANSETRON 4 MG/2 ML (SDV) Z0FRAN ONE (15:29)
[2021-09-29] MEDS ORDERED: SEVOFLURANE (ULTANE) 15 ML INHAL SOLN ONE (15:30)
--- NOTE | 2021-09-29 15:47 | Operative Report - Ortho ---
Operative Report Surgeon (s)/Shop Tech (s) Surgeon GABBY GARG MD Shop Tech n/a Pre-Operative Diagnosis Left Elbow Dislocation Post-Operative Diagnosis same Operative Report Date of Procedure: Sep 29, 2021 Name of Procedure Performed: Closed Reduction of Left Elbow Dislocation Description & Findings Patient had previously received sedation at [facility] and could not consent, procedure declared urgent secondary to dislocated joint. Taken to operating room, general anesthesia induced. Surgical timeout taken. Using traction and gentle rotation, the posterior elbow dislocation was reduced. Images were obtained using the mini C-arm and were saved. Arm was padded with stockinette and webril. A posterior and sugartong splint combination was applied to the arm and secured with RAJENDRA wraps. Patient tolerated the procedure well and was stable to the recovery room. Anesthesia Type General Estimated Blood Loss None Specimen(s) collected/removed None GABBY GARG MD Sep 29, 2021 15:47
[2021-09-29] MEDS ORDERED: OXC5T PO (15:50)
--- NOTE | 2021-09-29 15:52 | Anesthesia-General Post-Op ---
General Patient Condition Mental Status/LOC: Same as Preop Cardiovascular: Satisfactory Nausea/Vomiting: Absent Respiratory: Satisfactory Pain: Controlled Complications: Absent Post Op Complications Complications None Follow Up Care/Instructions Patient Instructions None needed. Anesthesia/Patient Condition Patient Condition Patient is doing well, no complaints, stable vital signs, no apparent adverse anesthesia problems. No complications reported per nursing. CHANO MURPHY CRNA Sep 29, 2021 15:52
[2021-09-29] MEDS ORDERED: ONDANSETRON 4 MG/2 ML (SDV) Z0FRAN IVP PRN (16:00)
== END 2021-09-29 17:30 ==
LOC: EDUNIT# 10:28 → ER FS 10:29 → SDC 14:45
PROVIDERS: ATTEND Orthopaedic Surgery
DX: S53.105A Unspecified dislocation of left ulnohumeral joint, initial encounter (principal); E66.9 Obesity, unspecified; F17.210 Nicotine dependence, cigarettes, uncomplicated; Z68.41 Body mass index [BMI] 40.0-44.9, adult
CPT/HCPCS: 73030; 73060; 73070; 73120; 93041

== ENCOUNTER → 2021-10-12 | Outpatient (CLI) | payer OTHER ==
[~2021-10-12] MED LIST changes: +OXC5T PO
== END ==
LOC: ORTHO 15:11
PROVIDERS: ATTEND Orthopaedic Surgery
DX: Z47.89 Encounter for other orthopedic aftercare (principal)

== ENCOUNTER → 2021-10-26 | Outpatient (CLI) | payer OTHER | LOC: ORTHO 15:41 | PROVIDERS: ATTEND Orthopaedic Surgery | DX: Z47.89 Encounter for other orthopedic aftercare (principal); E78.00 Pure hypercholesterolemia, unspecified; I10 Essential (primary) hypertension; Z98.890 Other specified postprocedural states ==

== ENCOUNTER 2022-02-18 18:25 | Emergency (ER) | payer MEDICARE, OTHER ==
[~2022-02-18] VITALS: Ht 165 cm; Wt 114.0 kg
[2022-02-18] MEDS ORDERED: NS IV 1000 ML 1,000 ML IV STA (18:33)
[2022-02-18] MEDS ORDERED: KETOROLAC 30 MG/ML VIAL IVP STA (18:33)
[2022-02-18] MEDS ORDERED: PROCHLORPERAZINE 10 MG/2ML INJ (COMPAZINE) IV STA (18:33)
[2022-02-18 18:39] LABS: BASOPHILS % (AUTO) 0 % (0-10); EOSINOPHILS # (AUTO) 0.3 10^3/uL (0.0-0.3); EOSINOPHILS % (AUTO) 2 % (0-10); HEMATOCRIT 41 % (35-52); HEMOGLOBIN 13.6 g/dL (11.5-16.0); LYMPHOCYTES % (AUTO) 7 % (12-44); MEAN CORPUSCULAR HEMOGLOBIN 29 pg (25-34); MEAN CORPUSCULAR HGB CONC 34 g/dL (32-36); MEAN CORPUSCULAR VOLUME 86 fL (80-99); MEAN PLATELET VOLUME 10.7 fL (9.0-12.2); MONOCYTES # (AUTO) 0.8 10^3/uL (0.0-1.0); MONOCYTES % (AUTO) 5 % (0-12); NEUTROPHILS # (AUTO) 11.9 10^3/uL (1.8-7.8); NEUTROPHILS % (AUTO) 85 % (42-75); PLATELET COUNT 250 10^3/uL (130-400)
[2022-02-18 19:00] LABS: BILIRUBIN,TOTAL 0.3 MG/DL (0.1-1.0); CALCIUM 8.9 MG/DL (8.5-10.1); CREATININE SERUM 0.92 MG/DL (0.60-1.30); MAGNESIUM 2.1 MG/DL (1.6-2.4); POTASSIUM 5.3 MMOL/L (3.6-5.0)
[2022-02-18 19:01] LABS: ALBUMIN 3.4 GM/DL (3.2-4.5); TOTAL PROTEIN 7.2 GM/DL (6.4-8.2)
--- NOTE | 2022-02-18 19:06 | ED General ---
General Chief Complaint: Abdominal/GI Problems Stated Complaint: VOMITING Source of Information: Patient History of Present Illness Date Seen by Provider: Feb 18, 2022 Time Seen by Provider: 18:26 Initial Comments 56-year-old female presenting with complaints of sudden onset this afternoon of headache, neck pain, nausea, vomiting. She started with nasal congestion yesterday. About 6 hours prior to arrival in the ED she started having headache with neck pain and nausea and vomiting. She has had subjective fever and chills. She denies any pain with urination or diarrhea. She denies ill contacts. EMS transported her from home to the ED and she did receive Zofran 4 mg IV in route. Despite this she continued to have vomiting on arrival to the ED. Timing/Duration: 1-2 Days Severity: Severe Modifying Factors: worse with Movement Associated Systoms: No Chest Pain, No Cough, No Diaphoresis; Fever/Chills (Subjective), Headaches, Malaise, Nausea/Vomiting; No Seizure, No Shortness of Air, No Syncope; Weakness Allergies and Home Medications Allergies Coded Allergies: codeine (Verified Allergy, Unknown, 04/12/20) pentazocine (Verified Allergy, Unknown, 04/12/20) Patient Home Medication List Home Medication List Reviewed: Yes Albuterol Sulfate (Proair Hfa) 1 Puff Puff, 2 PUFF IH Q4H Prescribed by: OZZIE SANTIAGO on 04/12/201705 Aspirin (Aspirin) 325 Mg Tablet, 325 MG PO DAILY Prescribed by: OZZIE SANTIAGO on 04/12/201704 Azithromycin (Azithromycin) 250 Mg Tablet, 250 MG PO BID Prescribed by: OZZIE SANTIAGO on 04/12/201704 Dexamethasone (Dexamethasone) 6 Mg Tablet, 6 MG PO DAILY Prescribed by: OZZIE SANTIAGO on 04/12/201704 Metoclopramide HCl (Metoclopramide HCl) 10 Mg Tablet, 10 MG PO Q6H PRN for NAUSEA/VOMITING Prescribed by: DANIEL PÉREZ on 02/18/222045 Ondansetron (Ondansetron Odt) 4 Mg Tab.rapdis, 4 MG PO TID Prescribed by: OZZIE SANTIAGO on 04/12/201704 Oxycodone Hcl (Oxyir Tablet) 5 Mg Tab, 5 MG PO Q4H Prescribed by: GABBY GARG MD on 09/29/21 1551 Review of Systems Review of Systems Constitutional: see HPI EENTM: nose congestion Respiratory: No cough Cardiovascular: No chest pain Gastrointestinal: see HPI; No abdominal pain Genitourinary: No dysuria Musculoskeletal: neck pain (With headache and body aches) Skin: No rash Psychiatric/Neurological: Headache; Denies Numbness, Denies Paresthesia Past Ljapjmz-Dvfnhf-Uubutv Hx Patient Social History Tobacco Use?: Yes Tobacco type used: Cigarettes Smoking Status: Current Everyday Smoker Use of E-Cig and/or Vaping dev: No Substance use?: No Alcohol Use?: No Immunizations Up To Date First/Initial COVID19 Vaccinat: Yes Second COVID19 Vaccination Vadim: No Third COVID19 Vaccination Date: No Seasonal Allergies Seasonal Allergies: No Past Medical History Surgery/Hospitalization HX: HTN; High cholesterol; CVA; Essential Tremor; right lung lobectomy; Endometrial abalation; Cholecysectomy; Neuropathy; GERD; Depression; Anxiety Surgeries: Yes (uterine ablation) Appendectomy, Gallbladder, Lobectomy Respiratory: No Currently Using CPAP: No Currently Using BIPAP: No Cardiac: No Neurological: No Genitourinary: No Gastrointestinal: No Musculoskeletal: Yes Arthritis Endocrine: No HEENT: No Cancer: No Psychosocial: No Integumentary: No Physical Exam Vital Signs Vital Signs - First Documented 02/18/22 18:36 Temp 36.7 Pulse 84 Resp 16 B/P (MAP) 167/85 (112) Pulse Ox 93 O2 Delivery Room Air Capillary Refill : Height, Weight, BMI Height: '" Weight: lbs. oz. kg; 41.00 BMI Method: General Appearance: Moderate Distress (Actively vomiting on arrival to ED), Obese HEENT: PERRL/EOMI, Pharynx Normal Neck: Full Range of Motion, Supple, Tender Lateral Respiratory: Chest Non Tender, Lungs Clear, Normal Breath Sounds, No Accessory Muscle Use, No Respiratory Distress Cardiovascular: Regular Rate, Rhythm, Normal Peripheral Pulses Gastrointestinal: No Pulsatile Mass, Non Tender, Soft, Abnormal Bowel Sounds (Hypoactive bowel sounds); No Guarding, No Rebound Rectal: Deferred Back: No CVA Tenderness Extremity: Normal Capillary Refill, No Pedal Edema Neurologic/Psychiatric: Alert, Oriented x3, 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 Norm as Tested Skin: Diaphoresis Focused Exam Lactate Level 02/18/22 18:30: Lactic Acid Level 0.83 Lactic Acid Level Laboratory Tests Test 02/18/22 18:30 Lactic Acid Level 0.83 MMOL/L (0.50-2.00) Progress/Results/Core Measures Suspected Sepsis SIRS Temperature: Pulse: 84 Respiratory Rate: 16 Laboratory Tests 02/18/22 18:30: White Blood Count 14.0H Blood Pressure 167 /85 Mean: 112 02/18/22 18:30: Lactic Acid Level 0.83 Laboratory Tests 02/18/22 18:30: Creatinine 0.92, Platelet Count 250, Total Bilirubin 0.3 Results/Orders Lab Results Laboratory Tests Test 02/18/22 18:30 02/18/22 20:23 Range/Units White Blood Count 14.0 H 4.3-11.0 10^3/uL Red Blood Count 4.75 3.80-5.11 10^6/uL Hemoglobin 13.6 11.5-16.0 g/dL Hematocrit 41 35-52 % Mean Corpuscular Volume 86 80-99 fL Mean Corpuscular Hemoglobin 29 25-34 pg Mean Corpuscular Hemoglobin Concent 34 32-36 g/dL Red Cell Distribution Width 14.0 10.0-14.5 % Platelet Count 250 130-400 10^3/uL Mean Platelet Volume 10.7 9.0-12.2 fL Immature Granulocyte % (Auto) 0 % Neutrophils (%) (Auto) 85 H 42-75 % Lymphocytes (%) (Auto) 7 L 12-44 % Monocytes (%) (Auto) 5 0-12 % Eosinophils (%) (Auto) 2 0-10 % Basophils (%) (Auto) 0 0-10 % Neutrophils # (Auto) 11.9 H 1.8-7.8 10^3/uL Lymphocytes # (Auto) 1.0 1.0-4.0 10^3/uL Monocytes # (Auto) 0.8 0.0-1.0 10^3/uL Eosinophils # (Auto) 0.3 0.0-0.3 10^3/uL Basophils # (Auto) 0.0 0.0-0.1 10^3/uL Immature Granulocyte # (Auto) 0.1 0.0-0.1 10^3/uL Neutrophils % (Manual) 88 % Lymphocytes % (Manual) 6 % Monocytes % (Manual) 5 % Eosinophils % (Manual) 1 % Sodium Level 135 135-145 MMOL/L Potassium Level 5.3 H 3.6-5.0 MMOL/L Chloride Level 100 98-107 MMOL/L Carbon Dioxide Level 23 21-32 MMOL/L Anion Gap 12 5-14 MMOL/L Blood Urea Nitrogen 11 7-18 MG/DL Creatinine 0.92 0.60-1.30 MG/DL Estimat Glomerular Filtration Rate 73 BUN/Creatinine Ratio 12 Glucose Level 131 H 70-105 MG/DL Lactic Acid Level 0.83 0.50-2.00 MMOL/L Calcium Level 8.9 8.5-10.1 MG/DL Corrected Calcium 9.4 8.5-10.1 MG/DL Magnesium Level 2.1 1.6-2.4 MG/DL Total Bilirubin 0.3 0.1-1.0 MG/DL Aspartate Amino Transf (AST/SGOT) 26 5-34 U/L Alanine Aminotransferase (ALT/SGPT) 22 0-55 U/L Alkaline Phosphatase 128 40-136 U/L C-Reactive Protein 6.67 H <0.50 MG/DL Total Protein 7.2 6.4-8.2 GM/DL Albumin 3.4 3.2-4.5 GM/DL Influenza Type A (RT-PCR) Not Detected Not Detecte Influenza Type B (RT-PCR) Not Detected Not Detecte SARS-CoV-2 RNA (RT-PCR) Not Detected Not Detecte Urine Color YELLOW Urine Clarity CLEAR Urine pH 5.0 5-9 Urine Specific [place] >=1.030 1.016-1.022 Urine Protein NEGATIVE NEGATIVE Urine Glucose (UA) NEGATIVE NEGATIVE Urine Ketones NEGATIVE NEGATIVE Urine Nitrite NEGATIVE NEGATIVE Urine Bilirubin NEGATIVE NEGATIVE Urine Urobilinogen 0.2 < = 1.0 MG/DL Urine Leukocyte Esterase NEGATIVE NEGATIVE Urine RBC (Auto) NEGATIVE NEGATIVE Urine RBC 0-2 /HPF Urine WBC 2-5 /HPF Urine Squamous Epithelial Cells 5-10 /HPF Urine Crystals NONE /LPF Urine Bacteria FEW H /HPF Urine Casts NONE /LPF Urine Mucus LARGE H /LPF Urine Culture Indicated YES My Orders Orders - DANIEL PÉREZ MD Cbc With Automated Diff (02/18/22 18:33) Comprehensive Metabolic Panel (02/18/22 18:33) Blood Culture (02/18/22 18:33) Ua Culture If Indicated (02/18/22 18:33) Ed Iv/Invasive Line Start (02/18/22 18:33) Crp Fs (02/18/22 18:33) Lactic Acid Analyzer (02/18/22 18:33) Covid 19 Inhouse Test (02/18/22 18:33) Influenza A And B By Pcr (02/18/22 18:33) Isolation Central Supply Req (02/18/22 18:33) Ns Iv 1000 Ml (Sodium Chloride 0.9%) (02/18/22 18:33) Prochlorperazine Injection (Compazine In (02/18/22 18:33) Ketorolac Injection (Toradol Injection) (02/18/22 18:33) Magnesium (02/18/22 18:33) Ct Head/Cervical Spine Wo (02/18/22 18:36) Ct Abdomen/Pelvis Wo (02/18/22 18:36) Manual Differential (02/18/22 18:30) Urine Culture (02/18/22 20:23) Rx-Metoclopramide Tab (Rx-Reglan Tab) (02/18/22 20:42) Vital Signs/I&O 02/18/22 02/18/22 18:36 20:49 Temp 36.7 Pulse 84 86 Resp 16 16 B/P (MAP) 167/85 (112) 115/56 Pulse Ox 93 94 O2 Delivery Room Air Room Air 02/18/22 23:59 Intake Total 1000 ml Balance 1000 ml Capillary Refill : Blood Pressure Mean: 112 Progress Note #1: Progress Note Obtain basic labs as well as COVID and influenza swab blood cultures with a lactic acid. Urinalysis to look for UTI. Cardiac enzymes to look for acute coronary syndrome or myocardial ischemia. CT scan of the head and cervical spine since she was complaining of severe pain. CT of the abdomen and pelvis that she has hypoactive bowel sounds with nausea and vomiting. Administer 1 L normal saline IV fluid bolus for hydration, Compazine 10 mg IV for nausea and vomiting, Toradol 30 mg IV for headache and pain. Differential diagnosis includes influenza, COVID, sepsis, UTI, bowel obstruction, sinusitis, stroke, colitis, diverticulitis Progress Note #2: Time: 19:10 Progress Note CBC shows elevated white blood cell count of 14,000 with a left shift. Chemistry panel did show she had mild hyperkalemia with potassium 5.3 and mild hyperglycemia of 130. She did have a normal lactic acid of 0.83. Her CRP was elevated at 6.67 to go along with inflammation. Covid and Influenza were negative. Awaiting UA and radiology imaging. Progress Note #3: Progress Note Patient did have improvement in her symptoms and was able to tolerate oral inta ke here in the ED. Her CT scans were not showing any acute pathology with her brain, spine, abdomen and pelvis. Patient reports that she does have a history of migraine headaches but has not had 1 this severe for a while. Will prescribe antiemetic since she felt like the Zofran was not helping. Encouraged fluids and rest at home. Advised he may still be a viral illness in addition to her headache. However with the COVID and influenza negative and not seeing signs of sepsis or acute electrolyte imbalance will discharge to home. Encouraged to check back with the clinic. Diagnostic Imaging Diagonstic Imaging: CT Plain Films/CT/US/NM/MRI: c-spine, head Comments [facility], [place] NAME: [facility] REC#: [id number] PT STATUS: DEP ER : 1965 PHYSICIAN: DANIEL PÉREZ MD ADMIT DATE: 02/18/22/ER FS Signed Date of Exam:02/18/22 CT HEAD/CERVICAL SPINE WO PROCEDURE: CT head and CT cervical spine without contrast. TECHNIQUE: Multiple contiguous axial images were obtained through the brain and cervical spine without the use of intravenous contrast. Sagittal and coronal reformations through the cervical spine were then performed. Auto Exposure Controls were utilized during the CT exam to meet ALARA standards for radiation dose reduction. INDICATION: Head and neck pain. COMPARISON: No comparison available. FINDINGS: The CT of the head demonstrates no evidence of an acute intracranial abnormality. There is no finding of intracranial hemorrhage. There is no intracranial mass effect or shift. There is no hydrocephalus. There is no abnormal extra-axial fluid collection. There is no finding of loss of hernandez-white differentiation or vasogenic edema. The basilar cisterns are patent. Posterior fossa is unremarkable. The mastoid air cells are clear. There is minimal fluid in the maxillary sinuses and minimal mucosal thickening in the ethmoids. Orbital contents unremarkable. There is no acute calvarial abnormality. Cervical spine demonstrates normal cervical spine alignment. There are normal relationships of the craniocervical junction. There are normal relationships of the lateral masses of C1 and C2. The facets are normally aligned. There is no facet joint or disc space widening. Vertebral body heights are maintained. There is no acute cervical spine fracture. By CT imaging the most advanced degenerative features appear at C5-C6 and at C6-C7. There are small uncovertebral spurs at each level. There is moderate narrowing of the bilateral neural foramen at C5-C6 as well as mild narrowing of the central canal. Soft tissues of the neck demonstrate no acute process. IMPRESSION: 1. No CT evidence of an acute intracranial abnormality. 2. No cervical spine fracture or traumatic malalignment. 3. Background degenerative features within the cervical spine most advanced at C5-C6. Dictated by: Dictated on workstation # [id number] Dict: 02/18/221929 Trans: 02/18/222099 [facility] [id number] Interpreted by: MORIAH LOYA MD Electronically signed by: MORIAH LOYA MD 02/18/222099 Reviewed: Reviewed by Ms Diagonstic Imaging: CT Plain Films/CT/US/NM/MRI: abdomen, pelvis Comments [facility], [place] NAME: [facility] REC#: [id number] PT STATUS: [facility] ER : 1965 PHYSICIAN: DANIEL PÉREZ MD ADMIT DATE: 02/18/22/ER FS Signed Date of Exam:02/18/22 CT ABDOMEN/PELVIS WO PROCEDURE: CT abdomen and pelvis without contrast. TECHNIQUE: Multiple contiguous axial images were obtained through the abdomen and pelvis without the use of intravenous contrast. Auto Exposure Controls were utilized during the CT exam to meet ALARA standards for radiation dose reduction. INDICATION: Nausea, vomiting and fever. COMPARISON: No relevant comparison available. FINDINGS: The lung bases demonstrate no finding of pneumonia or edema. There is no pleural or pericardial effusion. The liver demonstrates no focal intrahepatic abnormality. The gallbladder is absent. There is no biliary dilatation. The pancreas is normal. The spleen is normal in size. There is no adrenal mass. The kidneys demonstrate no finding of hydronephrosis or obstruction. There is mild left renal atrophy compared to the right. The stomach is nondistended. There is no bowel obstruction. There is moderate stool within the colon. There is no abnormal bowel thickening. The appendix is normal. There is no finding of diverticulitis. The bladder is nondistended. The uterus and adnexa are unremarkable. There is no finding of free air, free fluid, abscess or adenopathy. There are atherosclerotic calcifications within a normal caliber aorta. There are some background degenerative features within the spine but no finding of an acute or suspicious osseous abnormality. IMPRESSION: 1. No CT finding of an acute inflammatory or obstructive process within the abdomen or pelvis. 2. Apparent previous cholecystectomy. 3. Mild left renal atrophy. There is no finding of urolithiasis or hydronephrosis. 4. No bowel obstruction or finding of appendicitis or diverticulitis. 5. No free fluid or free air. Dictated by: Dictated on workstation # [id number] Dict: 02/18/221933 Trans: 02/18/222099 [facility] [id number] Interpreted by: MORIAH LOYA MD Electronically signed by: MORIAH LOYA MD 02/18/222099 Reviewed: Reviewed by Me Departure Impression Primary Impression: Nausea and vomiting in adult Additional Impression: Headache Qualified Codes: R51.9 - Headache, unspecified Disposition: 01 HOME, SELF-CARE Condition: Stable Departure-Patient Inst. Decision time for Depature: 20:44 Referrals: SELFKMIBERLY MD (PCP) Primary Care Physician Patient Instructions: Nausea and Vomiting, Adult ED, Headache, Adult ED Add. Discharge Instructions: Try to keep sipping on fluids and stay hydrated Check with clinic if not improving with medicine. All discharge instructions reviewed with patient and/or family. Voiced underst anding. Scripts Metoclopramide HCl (Metoclopramide HCl) 10 Mg Tablet 10 MG PO Q6H PRN for NAUSEA/VOMITING for 3 Days, #12 TAB 0 Refills Prov: DANIEL PÉREZ MD 02/18/22 DANIEL PÉREZ MD Feb 18, 2022 19:06
[2022-02-18 19:26] LABS: EOSINOPHILS % (MANUAL) 1 %; LYMPHOCYTES % (MANUAL) 6 %; MONOCYTES % (MANUAL) 5 %; NEUTROPHILS % (MANUAL) 88 %
--- NOTE | 2022-02-18 19:43 | Diagnostic Imaging Report ---
PROCEDURE: CT head and CT cervical spine without contrast. TECHNIQUE: Multiple contiguous axial images were obtained through the brain and cervical spine without the use of intravenous contrast. Sagittal and coronal reformations through the cervical spine were then performed. Auto Exposure Controls were utilized during the CT exam to meet ALARA standards for radiation dose reduction. INDICATION: Head and neck pain. COMPARISON: No comparison available. FINDINGS: The CT of the head demonstrates no evidence of an acute intracranial abnormality. There is no finding of intracranial hemorrhage. There is no intracranial mass effect or shift. There is no hydrocephalus. There is no abnormal extra-axial fluid collection. There is no finding of loss of hernandez-white differentiation or vasogenic edema. The basilar cisterns are patent. Posterior fossa is unremarkable. The mastoid air cells are clear. There is minimal fluid in the maxillary sinuses and minimal mucosal thickening in the ethmoids. Orbital contents unremarkable. There is no acute calvarial abnormality. Cervical spine demonstrates normal cervical spine alignment. There are normal relationships of the craniocervical junction. There are normal relationships of the lateral masses of C1 and C2. The facets are normally aligned. There is no facet joint or disc space widening. Vertebral body heights are maintained. There is no acute cervical spine fracture. By CT imaging the most advanced degenerative features appear at C5-C6 and at C6-C7. There are small uncovertebral spurs at each level. There is moderate narrowing of the bilateral neural foramen at C5-C6 as well as mild narrowing of the central canal. Soft tissues of the neck demonstrate no acute process. IMPRESSION: 1. No CT evidence of an acute intracranial abnormality. 2. No cervical spine fracture or traumatic malalignment. 3. Background degenerative features within the cervical spine most advanced at C5-C6. Dictated by: Dictated on workstation # [id number]
--- NOTE | 2022-02-18 19:49 | Diagnostic Imaging Report ---
PROCEDURE: CT abdomen and pelvis without contrast. TECHNIQUE: Multiple contiguous axial images were obtained through the abdomen and pelvis without the use of intravenous contrast. Auto Exposure Controls were utilized during the CT exam to meet ALARA standards for radiation dose reduction. INDICATION: Nausea, vomiting and fever. COMPARISON: No relevant comparison available. FINDINGS: The lung bases demonstrate no finding of pneumonia or edema. There is no pleural or pericardial effusion. The liver demonstrates no focal intrahepatic abnormality. The gallbladder is absent. There is no biliary dilatation. The pancreas is normal. The spleen is normal in size. There is no adrenal mass. The kidneys demonstrate no finding of hydronephrosis or obstruction. There is mild left renal atrophy compared to the right. The stomach is nondistended. There is no bowel obstruction. There is moderate stool within the colon. There is no abnormal bowel thickening. The appendix is normal. There is no finding of diverticulitis. The bladder is nondistended. The uterus and adnexa are unremarkable. There is no finding of free air, free fluid, abscess or adenopathy. There are atherosclerotic calcifications within a normal caliber aorta. There are some background degenerative features within the spine but no finding of an acute or suspicious osseous abnormality. IMPRESSION: 1. No CT finding of an acute inflammatory or obstructive process within the abdomen or pelvis. 2. Apparent previous cholecystectomy. 3. Mild left renal atrophy. There is no finding of urolithiasis or hydronephrosis. 4. No bowel obstruction or finding of appendicitis or diverticulitis. 5. No free fluid or free air. Dictated by: Dictated on workstation # [id number]
[2022-02-18 20:28] LABS: BILIRUBIN,URINE NEGATIVE (NEGATIVE); CLARITY,URINE CLEAR; COLOR,URINE YELLOW; GLUCOSE, URINE (UA) NEGATIVE (NEGATIVE); KETONES,URINE NEGATIVE (NEGATIVE); LEUKOCYTE ESTERASE ,URINE NEGATIVE (NEGATIVE); NITRITE,URINE NEGATIVE (NEGATIVE); PROTEIN,URINE NEGATIVE (NEGATIVE)
[2022-02-18 20:33] LABS: BACTERIA,URINE FEW /HPF; RBC,URINE 0-2 /HPF
[2022-02-18] MEDS ORDERED: RX-METOCLOPRAMIDE 5 MG (REGLAN) TAB PPK#8 PO STA (20:42)
[2022-02-18] MEDS ORDERED: MTC10T PO (20:46)
[2022-02-18 20:49] VITALS: BP 115/56
== END 2022-02-18 20:51 | disposition home or self-care (01) ==
LOC: EDUNIT# 18:25 → ER FS 18:26
DX: R11.2 Nausea with vomiting, unspecified (principal); R51.9 Headache, unspecified; D72.829 Elevated white blood cell count, unspecified; E87.5 Hyperkalemia; R73.9 Hyperglycemia, unspecified; E66.9 Obesity, unspecified; F17.210 Nicotine dependence, cigarettes, uncomplicated; Z68.41 Body mass index [BMI] 40.0-44.9, adult; Z28.311 Partially vaccinated for COVID-19
CPT/HCPCS: 36415; 70450; 72125; 74176; 80053; 81000; 83605; 83735; 85007; 85027; 86141; 87040; 87088; 87636